=== PATIENT | male | born 1985 | race Caucasian/White ===

== ENCOUNTER 2017-03-19 00:35 | Emergency (ER) | payer SELFPAY ==
[~2017-03-19] VITALS: Ht 175.3 cm; Wt 88.5 kg
[2017-03-19] MEDS ORDERED: IBUPROFEN800 MG PO (00:47)
[2017-03-19] MEDS ORDERED: TRAMADOL HCL50 MG PO (01:04)
[2017-03-19] MEDS ORDERED: OMEPRAZOLE20 MG PO (01:04)
[2017-03-19] MEDS ORDERED: CEPHALEXIN500 MG PO (01:04)
== END 2017-03-19 01:15 | disposition home or self-care (01) ==
LOC: ED 00:35
DX: K08.89 Other specified disorders of teeth and supporting structures (principal); F17.200 Nicotine dependence, unspecified, uncomplicated; Z88.1 Allergy status to other antibiotic agents; Z88.8 Allergy status to other drugs, medicaments and biological substances
CPT/HCPCS: 99283